=== PATIENT | female | born 1960 | race Hispanic/Latino ===

== ENCOUNTER 2023-02-11 18:52 | Emergency (ER) | payer OTHER ==
[2023-02-11] MEDS ORDERED: MECLIZINE HCL 12.5 MG TAB ONE (20:20)
[2023-02-11] MEDS ORDERED: IBUPROFEN 200 MG TAB PO ONE (20:20)
[2023-02-11] MEDS ORDERED: IBUPROFEN 400 MG TAB ONE (20:20)
[2023-02-11] MEDS ORDERED: PROMETHAZINE 25 MG TABLET ONE (20:20)
[2023-02-11 20:42] LABS: Specific Gravity 1.018 (1.005-1.030); Urine Bacteria <20 /HPF (<20); Urine Bilirubin NEGATIVE (Negative); Urine Blood Negative (Negative); Urine Clarity Clear (Clear); Urine Color Light-Yellow (Yellow); Urine Glucose NEGATIVE (Negative); Urine Mucus Slight /HPF (None Seen); Urine Protein NEGATIVE (Negative); Urine RBC <5 /HPF (None Seen); Urine Urobilinogen Normal (Normal); Urine pH 6.5 (5.0-7.0)
--- NOTE | 2023-02-11 21:33 | EDPHYS ---
Physician Documentation [facility] Name: Mary Cat Age: 62 yrs Sex: Female : 1960 Arrival Date: 02/11/2023 Time: 18:52 Bed 10 Private MD: ED Physician Christofer Marroquin HPI: 02/11 19:29 This 62 yrs old Female presents to ER via Ambulatory with complaints of sp4 Urinary Frequency, Ear Pain. 21:26 62-year-old female history diabetes hypertension hypercholesterolemia presents with sp4 bilateral earache after her plane ride on Sunday 4 days ago. Patient has also developed burning on urination indicative of developing urinary tract infection. Patient denied tinnitus, denied bilateral ear discharge, denied nausea vomiting. . Historical: - Allergies: 19:21 Morphine; lg3 - Home Meds: 19:21 Metformin Oral [Active]; Lisinopril Oral [Active]; allopurinol 300 mg Oral tablet daily lg3 [Active]; - PMHx: 19:21 HTN; high cholesterol; Diabetes mellitus; chronic kidney stones; lg3 - PSHx: 19:21 renal cyst; possible cholecystectomy (unsure); hysterectomy; lg3 - Immunization history:: Adult Immunizations up to date, Client reports receiving the 2nd dose of the Covid vaccine, Flu vaccine is up to date. - Social history:: Smoking status: Patient denies any tobacco usage or history of. Patient/guardian denies using alcohol, street drugs. - Family history:: not pertinent. ROS: 21:26 Constitutional: Negative for fever, chills, and weight loss, Eyes: Negative for injury, sp4 pain, redness, and discharge, ENT: Negative for injury, and discharge, positive for bilateral ear pain after the plane ride 4 days Neck: Negative for injury, pain, and swelling, Cardiovascular: Negative for chest pain, palpitations, and edema, Respiratory: Negative for shortness of breath, cough, wheezing, and pleuritic chest pain, Abdomen/GI: Negative for abdominal pain, nausea, vomiting, diarrhea, and constipation, Back: Negative for injury and pain, : Negative for injury, bleeding, discharge, and swelling, positive for dysuria MS/Extremity: Negative for injury and deformity, Skin: Negative for injury, rash, and discoloration, Neuro: Negative for headache, weakness, numbness, tingling, and seizure, Psych: Negative for depression, anxiety, Allergy/Immunology: Negative for hives, rash, and allergies Endocrine: Negative for neck swelling, polydipsia, polyuria, polyphagia, and weight changes Hematologic/Lymphatic: Negative for swollen nodes, abnormal bleeding, and unusual bruising Exam: 21:26 Constitutional: This is a well developed, well nourished patient who is awake, alert, sp4 and in no acute distress. Head/Face: Normocephalic, atraumatic. Eyes: Pupils equal round and reactive to light, extra-ocular motions intact. Lids and lashes normal. Conjunctiva and sclera are not injected. Cornea within normal limits. Periorbital areas with no swelling, redness, or edema. ENT: Nares patent. No nasal discharge, no septal abnormalities noted. and external auditory canals are clear. Oropharynx with no redness, swelling, or masses, exudates, or evidence of obstruction, uvula midline. Mucous membranes moist. Bilateral TM opacification with a fluid bubbles behind eardrums. Indicative of serous bilateral middle ear effusion Neck: Trachea midline, no thyromegaly or masses palpated, and no cervical lymphadenopathy. Supple, full range of motion without nuchal rigidity, or vertebral point tenderness. No Meningismus. Chest/axilla: Normal chest wall appearance and motion. Nontender with no deformity. No lesions are appreciated. Cardiovascular: Regular rate and rhythm with a normal S1 and S2. No gallops, murmurs, or rubs. Normal PMI, no JVD. No pulse deficits. Respiratory: Lungs have equal breath sounds bilaterally, clear to auscultation and percussion. No rales, rhonchi or wheezes noted. No increased work of breathing, no retractions or nasal flaring. Abdomen/GI: Soft, non-tender, with normal bowel sounds. No distension or tympany. No guarding or rebound. No evidence of tenderness throughout. Back: No spinal tenderness. No costovertebral tenderness. Skin: Warm, dry with normal turgor. Normal color with no rashes, no lesions, and no evidence of cellulitis. MS/ Extremity: Pulses equal, no cyanosis. Neurovascular intact. Full, normal range of motion. Neuro: Awake and alert, GCS 15, oriented to person, place, time, and situation. Cranial nerves II-XII grossly intact. Motor strength 5/5 in all extremities. Sensory grossly intact. Psych: Awake, alert, with orientation to person, place and time. Behavior, mood, and affect are within normal limits Vital Signs: 19:18 BP 179 / 96; Pulse 71; Resp 16 S; Temp 98.1(O); Pulse Ox 99% on R/A; Weight 102.97 kg lg3 (R); Height 5 ft. 1 in. (R); 20:20 BP 158 / 90; Pulse 88; Resp 16; kl 22:28 Pulse 77; Resp 16; Pulse Ox 99% ; cg 19:18 Body Mass Index 42.89 (102.97 kg, 154.94 cm) lg3 MDM: 19:40 Patient medically screened. sp4 21:26 Differential diagnosis: otitis media, otitis externa, ruptured TM, foreign body, acute sp4 otalgia, cerumen impaction, barotrauma , serotympanum. Data reviewed: vital signs, nurses notes, lab test result(s), urinalysis, bacteruria. ED course: Patient will be prescribed meclizine and also low-dose ibuprofen for earaches also Keflex for mild early UTI. 02/11 19:39 Order name: Urinalysis W/Microscopic; Complete Time: 21:13 sp4 02/11 20:48 Order name: Glucose, Ancillary Testing; Complete Time: 21:13 EDMS 02/11 19:39 Order name: Accucheck; Complete Time: 20:37 sp4 Administered Medications: 20:19 Drug: Promethazine PO 25 mg Route: PO; kl 20:19 Drug: Ibuprofen PO 600 mg Route: PO; kl 20:20 Drug: Meclizine PO 25 mg Route: PO; kl Disposition Summary: 02/11/23 21:32 Discharge Ordered Location: Home sp4 Problem: new sp4 Symptoms: have improved sp4 Condition: Stable sp4 Diagnosis - Acute serous otitis media, bilateral sp4 - UTI/ Urinary tract infection, site not specified sp4 - Bilateral ear pain, lower UTI, acute cystitis sp4 Followup: sp4 - With: Private Physician - When: As needed - Reason: Recheck today's complaints Discharge Instructions: - Discharge Summary Sheet sp4 - Urinary Tract Infection, Adult sp4 Forms: - Antibiotic Education sp4 Prescriptions: - Cephalexin 500 mg Oral Capsule - take 1 capsule by ORAL route 2 times per day for 5 days; 10 capsule; Refills: sp4 0, Product Selection Permitted - Ibuprofen 600 mg Oral Tablet - take 1 tablet by ORAL route every 6 hours As needed take with food; 30 tablet; sp4 Refills: 0, Product Selection Permitted - Meclizine 25 mg Oral Tablet - take 1 tablet by ORAL route every 12 hours for 5 days; 10 tablet; Refills: 0, sp4 Product Selection Permitted - Fluconazole 200 mg Oral Tablet - take 1 tablet by ORAL route once daily for 5 days; 5 tablet; Refills: 0, sp4 Product Selection Permitted Signatures: Dispatcher [employer] Jaye Carpenter RN RN kl Gibson, Lacie, RN RN lg3 Christofer Marroquin MD MD sp4
--- NOTE | 2023-02-11 21:33 | ER ---
Nurse's Notes [facility] Name: Mary Cat Age: 62 yrs Sex: Female : 1960 Arrival Date: 02/11/2023 Time: 18:52 Bed 10 Private MD: Diagnosis: Acute serous otitis media, bilateral;UTI/ Urinary tract infection, site not specified;Bilateral ear pain, lower UTI, acute cystitis Presentation: 02/11 19:18 Chief complaint: Patient states: i took a plane flight on Sunday and ever since both lg3 of my ears are hurting but the left hurts way more. i also am having burning when i urinate. complaints of frequency and incontinence also. Coronavirus screen: Client denies travel out of the [place] in the last 14 days. At this time, the client does not indicate any symptoms associated with coronavirus-19. Ebola Screen: No symptoms or risks identified at this time. Initial Sepsis Screen: Does the patient meet any 2 criteria? No. Patient's initial sepsis screen is negative. Does the patient have a suspected source of infection? No. Patient's initial sepsis screen is negative. Risk Assessment: Do you want to hurt yourself or someone else? Patient reports no desire to harm self or others. Onset of symptoms is unknown. 19:18 Method Of Arrival: Ambulatory lg3 19:18 Acuity: DAFNE 4 lg3 Triage Assessment: 19:21 General: Appears in no apparent distress. uncomfortable, Behavior is calm, cooperative. lg3 Pain: Complains of pain in right ear, left ear and pelvis. EENT: Reports pain in right ear and left ear. Neuro: No deficits noted. Fritz Agitation-Sedation Scale (RASS): 0 - Alert and Calm Level of Consciousness is awake, alert, obeys commands, Oriented to person, place, time, situation. Cardiovascular: No deficits noted. Denies chest pain, shortness of breath, Capillary refill < 3 seconds Clubbing of nail beds is absent JVD is absent Patient's skin is warm and dry. Respiratory: No deficits noted. Airway is patent Trachea midline Respiratory effort is even, unlabored, Respiratory pattern is regular, symmetrical. GI: Abdomen is round non-distended, obese. : Reports burning with urination, inability to void, pain urgency, urinary frequency. Derm: No deficits noted. No signs and/or symptoms reported regarding the dermatologic system. Skin is intact, is healthy with good turgor, Skin is dry, Skin is normal, Skin temperature is warm. Musculoskeletal: No deficits noted. No signs and/or symptoms reported regarding the musculoskeletal system. Circulation, motion, and sensation intact. Range of motion: intact in all extremities. Historical: - Allergies: 19:21 Morphine; lg3 - Home Meds: 19:21 Metformin Oral [Active]; Lisinopril Oral [Active]; allopurinol 300 mg Oral tablet daily lg3 [Active]; - PMHx: 19:21 HTN; high cholesterol; Diabetes mellitus; chronic kidney stones; lg3 - PSHx: 19:21 renal cyst; possible cholecystectomy (unsure); hysterectomy; lg3 - Immunization history:: Adult Immunizations up to date, Client reports receiving the 2nd dose of the Covid vaccine, Flu vaccine is up to date. - Social history:: Smoking status: Patient denies any tobacco usage or history of. Patient/guardian denies using alcohol, street drugs. - Family history:: not pertinent. Screenin:20 [facility] ED Fall Risk Assessment (Adult) History of falling in the last 3 months, kl including since admission No falls in past 3 months (0 pts) Confusion or Disorientation No (0 pts) Intoxicated or Sedated No (0 pts) Impaired Gait No (0 pts) Mobility Assist Device Used No (0 pt) Altered Elimination No (0 pt) Score/Fall Risk Level 0 - 2 = Low Risk Oriented to surroundings, Maintained a safe environment. Abuse screen: Denies threats or abuse. Nutritional screening: No deficits noted. Tuberculosis screening: No symptoms or risk factors identified. Assessment: 20:20 Reassessment: Patient appears in no apparent distress at this time. Patient is alert, kl oriented x 3, equal unlabored respirations, skin warm/dry/pink. 22:28 Reassessment: Patient appears in no apparent distress at this time. Patient is alert, cg oriented x 3, equal unlabored respirations, skin warm/dry/pink. Vital Signs: 19:18 BP 179 / 96; Pulse 71; Resp 16 S; Temp 98.1(O); Pulse Ox 99% on R/A; Weight 102.97 kg lg3 (R); Height 5 ft. 1 in. (R); 20:20 BP 158 / 90; Pulse 88; Resp 16; kl 22:28 Pulse 77; Resp 16; Pulse Ox 99% ; cg 19:18 Body Mass Index 42.89 (102.97 kg, 154.94 cm) 3 ED Course: 19:01 Patient arrived in ED. am2 19:21 Triage completed. lg3 19:21 Arm band placed on right wrist. 3 19:29 Christofer Marroquin MD is Attending Physician. sp4 20:20 Patient has correct armband on for positive identification. Bed in low position. Call kl light in reach. 20:20 Urinalysis W/Microscopic Sent. kl 20:37 Urinalysis W/Microscopic Sent. kl 22:28 No provider procedures requiring assistance completed. Patient did not have IV access cg during this emergency room visit. Administered Medications: 20:19 Drug: Promethazine PO 25 mg Route: PO; kl 20:19 Drug: Ibuprofen PO 600 mg Route: PO; kl 20:20 Drug: Meclizine PO 25 mg Route: PO; kl Medication: 22:29 VIS not applicable for this client. cg Outcome: 21:32 Discharge ordered by . sp4 22:28 Discharged to home with family. cg 22:28 Condition: improved 22:28 Discharge instructions given to patient, family, Instructed on discharge instructions, follow up and referral plans. medication usage, Demonstrated understanding of instructions, follow-up care, medications, Prescriptions given X 2. 22:29 Patient left the ED. cg Signatures: Jaye Olivares RN RN kl Garcia, Cindy, RN RN Jerrica Meza am2 Mayra Kebede RN RN [facility] Christofer Marroquin MD MD sp4
[2023-02-11 22:53] VITALS: TEMP 98.1; O2SAT 99
[2023-02-11 22:55] VITALS: BP 158/90
== END 2023-02-11 22:29 | disposition home or self-care (01) ==
LOC: ER 18:52
DX: H65.03 Acute serous otitis media, bilateral (principal); N39.0 Urinary tract infection, site not specified; E11.9 Type 2 diabetes mellitus without complications; I10 Essential (primary) hypertension; Z88.5 Allergy status to narcotic agent
CPT/HCPCS: 81001; 82947; 99284; Q0169; J8597